=== PATIENT | male | born 1995 | race Caucasian/White ===

== ENCOUNTER 2020-12-16 15:37 | Emergency (ER) | payer OTHER ==
[~2020-12-16] VITALS: Ht 195.6 cm; Wt 90.7 kg
[2020-12-16] MEDS ORDERED: DOLOGEN CAPLET1 EACH PO (17:58)
== END 2020-12-16 18:08 | disposition home or self-care (01) ==
LOC: ER 15:37
DX: B34.9 Viral infection, unspecified (principal); R50.9 Fever, unspecified; Z20.822 Contact with and (suspected) exposure to COVID-19